=== PATIENT | male | born 1965 | race Caucasian/White ===

== ENCOUNTER 2017-12-06 08:37 | Day surgery (SDC) | payer MEDICARE ==
[~2017-12-06] VITALS: Ht 175.3 cm; Wt 76.3 kg
[~2017-12-06 08:37] MED LIST: FLUO20CA19 PO; HYDR-3307 PO; OXYC10TA6 PO
[2017-12-06] MEDS ORDERED: LACTATED RINGERS 1,000 ML IV SCH (09:12)
[2017-12-06 09:46] LABS: BASOPHILS # (AUTO) 0.03 x10^3/uL (0-0.1); BASOPHILS % (AUTO) 1 % (0-1); EOSINOPHILS # (AUTO) 0.12 x10^3/uL (0-0.4); EOSINOPHILS % (AUTO) 2 % (1-7); LYMPHOCYTES # (AUTO) 0.96 x10^3/uL (1-3.4); LYMPHOCYTES % (AUTO) 18 % (22-44); MD NO; MEAN CORPUSCULAR HEMOGLOBIN 29.8 pg (27.5-34.5); MEAN CORPUSCULAR HGB CONC 33.8 g/dL (33.2-36.2); MEAN CORPUSCULAR VOLUME 88.3 fL (81-97); MEAN PLATELET VOLUME 7.7 fL (7.4-10.4); MONOCYTES # (AUTO) 0.44 x10^3/uL (0.2-0.8); MONOCYTES % (AUTO) 8 % (2-9); NEUTROPHILS # (AUTO) 3.91 x10^3/uL (1.8-6.8); NEUTROPHILS % (AUTO) 72 % (42-75); PLATELET COUNT 293 x10^3/uL (130-400); RED BLOOD COUNT 4.87 x10^6/uL (4.38-5.82); RED CELL DISTRIBUTION WIDTH 13.7 % (9.4-14.8)
[2017-12-06 09:54] LABS: INTERNATIONAL NORMALIZED RATIO 1.02 (0.93-1.1); PROTHROMBIN TIME 10.5 Seconds (9.6-11.5)
[2017-12-06] MEDS ORDERED: DESMOPRESSIN 20 MCG in SODIUM CHLORIDE 0.9% 50 ML IVPB ONE (10:00)
[2017-12-06] MEDS ORDERED: CIPROFLOXACIN/PMX 400MG/200ML 200 ML ONE (10:59)
[2017-12-06] MEDS ORDERED: PROPOFOL 50 ML ONE (11:00)
[2017-12-06] MEDS ORDERED: MIDAZOLAM 1 MG/ML, 2ML ONE (11:00)
[2017-12-06] MEDS ORDERED: MEPERIDINE/PF 25MG/0.5ML IVPush PRN (12:00)
[2017-12-06] MEDS ORDERED: MORPHINE SULFATE 4 MG/ML, 1ML IVPush PRN (12:00)
[2017-12-06] MEDS ORDERED: ALBUTEROL SULFATE 2.5 MG/3 ML NPPB PRN (12:00)
[2017-12-06] MEDS ORDERED: LABETALOL 5MG/ML, 20ML IV PRN (12:00)
[2017-12-06] MEDS ORDERED: MIDAZOLAM 1 MG/ML, 2ML IV PRN (12:00)
[2017-12-06] MEDS ORDERED: FENTANYL PF 100 MCG/2ML IV PRN (12:00)
[2017-12-06] MEDS ORDERED: ACETAMINOPHEN 325 MG TABLET PO PRN (12:00)
[2017-12-06] MEDS ORDERED: LORazepam 2 MG/ML, 1ML IVPush PRN (12:00)
[2017-12-06] MEDS ORDERED: OXYcodone 5 MG/5 ML ORAL.SOL UDC PO PRN (12:00)
[2017-12-06] MEDS ORDERED: hydrALAzine 20 MG/ML, 1ML IV PRN (12:00)
== END 2017-12-06 12:45 | disposition home or self-care (01) ==
LOC: OUT 08:37
PROVIDERS: ATTEND Internal Medicine
DX: K29.50 Unspecified chronic gastritis without bleeding (principal); K86.3 Pseudocyst of pancreas; G47.33 Obstructive sleep apnea (adult) (pediatric); Z88.0 Allergy status to penicillin; Z88.8 Allergy status to other drugs, medicaments and biological substances
CPT/HCPCS: 36415; 43238; 85025; 85610; 85730; 88112; 88172; 88173; 88305; J0744; J2250; J2597; J2704; J7120